=== PATIENT | male | born 1965 | race Caucasian/White ===

== ENCOUNTER 2020-03-12 08:06 | Outpatient (REF) | payer BC, SELFPAY | END 2020-03-12 08:07 | disposition home or self-care (01) | LOC: HO.BBR 08:06 | PROVIDERS: Visit Provider Specialist | DX: Z13.89 Encounter for screening for other disorder (principal) ==

== ENCOUNTER 2020-03-12 08:30 | Outpatient (REF) | payer SELFPAY ==
[2020-03-12 09:15] LABS: Cholesterol 148 mg/dL
[2020-03-12 09:37] LABS: SARS COV2 IgG Negative (Negative)
== END 2020-03-12 08:31 | disposition home or self-care (01) ==
LOC: HO.LNC 08:30
PROVIDERS: Visit Provider Pathology Anatomic Pathology & Clinical Pathology
DX: Z13.89 Encounter for screening for other disorder (principal)
CPT/HCPCS: 82465; 86769

== ENCOUNTER 2020-05-14 08:06 | Outpatient (REF) | payer BC, SELFPAY | END 2020-05-14 08:07 | disposition home or self-care (01) | LOC: HO.BBR 08:06 | PROVIDERS: Visit Provider Specialist | DX: Z13.89 Encounter for screening for other disorder (principal) ==

== ENCOUNTER 2020-05-14 09:11 | Outpatient (REF) | payer SELFPAY ==
[2020-05-14 09:39] LABS: Cholesterol 163 mg/dL
[2020-05-15 07:42] LABS: SARS COV2 IgG Negative (Negative)
== END 2020-05-14 09:12 | disposition home or self-care (01) ==
LOC: HO.LNC 09:11
PROVIDERS: Visit Provider Pathology Anatomic Pathology & Clinical Pathology
DX: Z13.89 Encounter for screening for other disorder (principal)
CPT/HCPCS: 36415; 82465; 86769

== ENCOUNTER 2020-09-02 08:03 | Outpatient (REF) | payer BC, SELFPAY | END 2020-09-02 08:04 | disposition home or self-care (01) | LOC: HO.BBR 08:03 | PROVIDERS: Visit Provider Specialist | DX: Z13.89 Encounter for screening for other disorder (principal) ==

== ENCOUNTER 2020-11-05 07:59 | Outpatient (REF) | payer BC, SELFPAY | END 2020-11-05 08:00 | disposition home or self-care (01) | LOC: HO.BBR 07:59 | PROVIDERS: PCP Family Medicine; Visit Provider Specialist | DX: Z13.89 Encounter for screening for other disorder (principal) ==

== ENCOUNTER 2021-03-11 08:04 | Outpatient (REF) | payer BC, SELFPAY | END 2021-03-11 08:05 | disposition home or self-care (01) | LOC: HO.BBR 08:04 | PROVIDERS: PCP Family Medicine; Visit Provider Specialist | DX: Z13.89 Encounter for screening for other disorder (principal) ==

== ENCOUNTER 2021-05-13 08:30 | Outpatient (REF) | payer SELFPAY | END 2021-05-13 08:31 | disposition home or self-care (01) | LOC: HO.BBR 08:30 | PROVIDERS: Visit Provider Specialist | DX: Z13.89 Encounter for screening for other disorder (principal) ==

== ENCOUNTER 2021-07-14 13:58 | Outpatient (REF) | payer BC, SELFPAY | END 2021-07-14 13:59 | disposition home or self-care (01) | LOC: HO.BBR 13:58 | PROVIDERS: Visit Provider Specialist | DX: Z13.89 Encounter for screening for other disorder (principal) ==

== ENCOUNTER 2021-09-02 08:09 | Outpatient (REF) | payer BC, SELFPAY | END 2021-09-02 08:10 | disposition home or self-care (01) | LOC: HO.BBR 08:09 | PROVIDERS: Visit Provider Specialist | DX: Z13.89 Encounter for screening for other disorder (principal) ==

== ENCOUNTER 2021-11-22 09:10 | Outpatient (REF) | payer BC, SELFPAY | END 2021-11-22 09:11 | disposition home or self-care (01) | LOC: HO.BBR 09:10 | PROVIDERS: Visit Provider Specialist | DX: Z13.89 Encounter for screening for other disorder (principal) ==

== ENCOUNTER 2022-01-31 08:07 | Outpatient (REF) | payer BC, SELFPAY | END 2022-01-31 08:08 | disposition home or self-care (01) | LOC: HO.BBR 08:07 | PROVIDERS: Visit Provider Specialist | DX: Z13.89 Encounter for screening for other disorder (principal) ==

== ENCOUNTER 2022-04-03 08:06 | Outpatient (REF) | payer BC, SELFPAY | END 2022-04-03 08:07 | disposition home or self-care (01) | LOC: HO.BBR 08:06 | PROVIDERS: Visit Provider Specialist | DX: Z13.89 Encounter for screening for other disorder (principal) ==

== ENCOUNTER 2022-06-09 08:12 | Outpatient (REF) | payer BC, SELFPAY | END 2022-06-09 08:13 | disposition home or self-care (01) | LOC: HO.BBR 08:12 | PROVIDERS: Visit Provider Specialist | DX: Z13.89 Encounter for screening for other disorder (principal) ==

== ENCOUNTER 2022-08-11 08:09 | Outpatient (REF) | payer BC, SELFPAY | END 2022-08-11 08:10 | disposition home or self-care (01) | LOC: HO.BBR 08:09 | PROVIDERS: Visit Provider Specialist | DX: Z13.89 Encounter for screening for other disorder (principal) ==

== ENCOUNTER 2022-10-13 08:03 | Outpatient (REF) | payer BC, SELFPAY | END 2022-10-13 08:04 | disposition home or self-care (01) | LOC: HO.BBR 08:03 | PROVIDERS: Visit Provider Specialist | DX: Z13.89 Encounter for screening for other disorder (principal) ==

== ENCOUNTER 2022-12-15 08:04 | Outpatient (REF) | payer BC, SELFPAY | END 2022-12-15 08:05 | disposition home or self-care (01) | LOC: HO.BBR 08:04 | PROVIDERS: Visit Provider Specialist | DX: Z13.89 Encounter for screening for other disorder (principal) ==

== ENCOUNTER 2023-02-16 07:59 | Outpatient (REF) | payer BC, SELFPAY | END 2023-02-16 08:00 | disposition home or self-care (01) | LOC: HO.BBR 07:59 | PROVIDERS: PCP Family Medicine; Visit Provider Specialist | DX: Z13.89 Encounter for screening for other disorder (principal) ==

== ENCOUNTER 2023-05-04 08:12 | Outpatient (REF) | payer BC, SELFPAY | END 2023-05-04 08:13 | disposition home or self-care (01) | LOC: HO.BBR 08:12 | PROVIDERS: PCP Family Medicine; Visit Provider Specialist | DX: Z13.89 Encounter for screening for other disorder (principal) ==

== ENCOUNTER 2023-07-06 08:09 | Outpatient (REF) | payer BC, SELFPAY | END 2023-07-06 08:10 | disposition home or self-care (01) | LOC: HO.BBR 08:09 | PROVIDERS: PCP Family Medicine; Visit Provider Specialist | DX: Z13.89 Encounter for screening for other disorder (principal) ==

== ENCOUNTER 2023-09-10 08:08 | Outpatient (REF) | payer BC, SELFPAY | END 2023-09-10 08:09 | disposition home or self-care (01) | LOC: HO.BBR 08:08 | PROVIDERS: PCP Family Medicine; Visit Provider Specialist | DX: Z13.89 Encounter for screening for other disorder (principal) ==

== ENCOUNTER 2024-10-17 08:06 | Outpatient (REF) | payer BC, SELFPAY ==
--- OUTSIDE RECORDS SUMMARY | 2024-10-17 08:09 | XMS_ITS | Clinical Summary ---
Author Organization [facility] [employer] [facility] [employer] Address [address] [facility] [place] [address] Care Team Providers Care Model Technician Name Role Phone Ezequiel Bowling MD Primary Care Provider Medications atorvastatin (LIPITOR) 10 MG tablet TAKE 1 TABLET BY MOUTH ONCE DAILY 1 09/24/2018 Active lisinopril (PRINIVIL,ZESTRI L) 10 MG tablet TAKE 1 TABLET BY MOUTH ONCE DAILY 2 10/09/2018 Active Family History Medical History Relation Comments Heart attack Father Heart disease Father Relation Status Comments Father Heart attack in his late 50's Social History Tobacco Use Types Packs/Day Years Used Date Smoking Tobacco: Never Smokeless Tobacco: Former Quit: 1985 Comments:Used to chew tobacc o Sex and Gender Information Value Date Recorded Sex Assigned at Not on file Legal Sex Male 6:37 PM EDT Gender Identity Not on file Sexual Orientation Not on file Last Filed Vital Signs Vital Sign Reading Time Taken Comments Blood Pressure 122/74 10/23/2018 9:34 AM EDT Pulse 88 10/23/2018 9:34 AM EDT Temperature 36.6 C (97.9 F) 10/23/2018 9:34 AM EDT Respiratory Rate 16 10/23/2018 9:34 AM EDT Oxygen Saturation 98% 10/23/2018 9:34 AM EDT Inhaled Oxygen Concentration - - Weight 79.8 kg (176 lb) 10/23/2018 9:34 AM EDT Height 171.5 cm (5' 7.5 ) 10/23/2018 9:34 AM EDT Body Mass Index 27.16 10/23/2018 9:34 AM EDT Plan of Treatment Health Maintenance Due Date Last Done Comments Colorectal Cancer: COLONOSCO PY Screening every 10 yrs (or Modifier) 1965 Depression: Screening Annual ly using PHQ-2/9 in Adults 18 yrs or above (or HM Modifier)([facility]) 1983 Hepatitis C Virus Infection in Adolescents and Adults: Screening (or Modifier) ([facility]) 1983 SDOK Screening Reminder: Caity schneider for all adults ([facility]) 1983 Tobacco Smoking Cessation: i n Adults excluding Women: Behavioral and Pharmacotherapy Interventions ([facility]) 1983 DTaP/Tdap/Td Vaccines ([facility]) (1 - Tdap) 1984 Colorectal Cancer Screening 45 -75 Yrs (or HM Modifier ) 2010 Colorectal Cancer: FLEXIBLE SIGMOIDOSCOPY Screening every 5 yrs 2010 Colorectal Cancer: Fecal Imm unochemical Test (FIT) Annually [facility] 2010 Colorectal Cancer: High-sens itivity gFOBT Screening Annually [facility] 2010 Colorectal Cancer: Stool Col oguard Screening every 3 yrs 2010 Colorectal Cancer:CT Colonography Screening every 5 yr s 2010 Pneumococcal Vaccination Scr eening: Patients 50+ yrs of age ([facility]) (1 of 1 - PCV) 2015 Zoster/Shingles Vaccine Seri es Screening: Adults aged 18+ yrs (or HM Modifiers)([facility]) (1 of 2) 2015 COVID-19 Vaccine Screening: Initial Series and Booster Status ([facility]) ( - 2023- season) 2023 Flu Vaccination: Yearly for ages 18mos through 64 years (or Modifier)([facility]) 11/21/2024 Medical Devices Not on file Care Teams Model Technician Relationship Specialty Start Date End Date Ezequiel Bowling MD [address] [place] [address] [place] [id number] PCP - General Family Medicine 10/23/18
== END 2024-10-17 08:07 | disposition home or self-care (01) ==
LOC: HO.BBR 08:06
PROVIDERS: Visit Provider Specialist
DX: Z13.89 Encounter for screening for other disorder (principal)